=== PATIENT | female | born 2000 | race Caucasian/White ===

== ENCOUNTER 2023-03-02 12:49 | Emergency (ER) | payer OTHER ==
[2023-03-02 13:12] VITALS: BP 119/74; O2SAT 98
[2023-03-02 13:20] LABS: RAPID STREP SCREEN POSITIVE (Negative)
--- NOTE | 2023-03-02 13:53 | ED Physician Documentation ---
History of Present Illness - Stated complaint Stated Complaint: THROAT PX/ACHES - Chief complaint Chief Complaint: Heent - History obtained from History obtained from: Patient - History of Present Illness Timing: How many weeks ago (1) Pain level max: 6 Pain level now: 6 - Additonal information Additional information: Patient is a 22-year-old female who presents to the emergency department with a sore throat x1 week. She has also had rhinorrhea, cough and congestion. Has not taken anything for this at home. No vomiting. No diarrhea. Denies any possibility of . She is on control. No urinary symptoms. No hematemesis. No hemoptysis. Worse with eating and drinking, nothing makes it b tomas. Review of Systems Constitutional: reports: Chills. denies: Fever Nose: reports: Rhinorrhea / runny nose, Congestion Throat: reports: Sore throat Respiratory: reports: Cough GI: denies: Vomiting, Diarrhea : denies: Now [facility] PAST MEDICAL HISTORY - Past Medical History Past Medical History: No - Past Surgical History Past Surgical History: No - Present Medications Home Medications: Ambulatory Orders Medication Instructions Recorded Confirmed Cetirizine HCl/Pseudoephedrine 1 tab PO BID PRN #20 tab 03/02/23 [Zyrtec-D ER 5 mg-120 mg Tablet] Penicillin V Potassium 500 mg PO Q6HR #40 tablet 03/02/23 - Allergies Allergies/Adverse Reactions: Allergies Allergy/AdvReac Type Severity Reaction Status Date / Time No Known Drug Allergies Allergy Verified 03/02/23 13:06 - Living Situation Living Arrangement: reports: At home - Social History Does the pt have substance abuse?: No PD ED PE NORMAL - Vitals Vital signs reviewed: Yes - General General: Alert and oriented X 3, No acute distress - HEENT HEENT: PERRL, Ears normal, Moist mucous membranes, Other (Posterior pharyngeal erythema with tonsillar exudates. Uvula midline. Normal phonation. No trismus.) - Neck Neck: Supple, no meningeal sign - Cardiac Cardiac: RRR, Strong equal pulses - Respiratory Respiratory: No respiratory distress, Clear bilaterally - Abdomen Abdomen: Soft, Non tender, Non distended - Derm Derm: Warm and dry, No rash - Neuro Neuro: Alert and oriented X 3 - Psych Psych: Normal mood, Normal affect Results - Vitals Vitals: Vital Signs - 24 hr 03/02/23 12:57 Temperature 37.5 C Heart Rate 94 Respiratory 17 Rate Blood Pressure 119/74 O2 Saturation 98 Oxygen O2 Source Room air - Labs Labs: Laboratory Tests 03/02/23 13:04 Group A Strep Rapid POSITIVE H PD Medical Decision Making - ED course Complexity details: reviewed results, considered differential, d/w patient ED course: Patient is well-appearing, nontoxic. Afebrile. Lungs are clear to auscultation bilaterally. She has positive for group A strep. Will place on antibiotics for this. We will also place on decongestants for home. Tolerating p.o. without difficulty here. Patient counseled regarding signs and symptoms for which I believe and urgent re-evaluation would be necessary. Patient with good understanding of and agreement to plan and is comfortable going home at this time This document was made in part using voice recognition software. While efforts are made to proofread this document, sound alike and grammatical errors may occur. No evidence of sepsis, peritonsillar abscess or retropharyngeal abscess. Departure - Departure Disposition: 01 Home, Self Care Clinical Impression: Strep pharyngitis Condition: Good Instructions: ED Strep Pharyngitis Conf Follow-Up: your,doctor as needed [Other] Prescriptions: Penicillin V Potassium 500 mg PO Q6HR #40 tablet Cetirizine HCl/Pseudoephedrine [Zyrtec-D ER 5 mg-120 mg Tablet] 1 tab PO BID PRN #20 tab PRN Reason: nasal congestion Comments: Your prescriptions were sent to [facility] in [place]. Please take all antibiotics until gone. Please return if you worsen. You are positive for strep pharyngitis today. Please make sure you are drinking plenty of fluids. You can use Tylenol and Motrin as needed for pain. Forms: PCP List, Activity restrictions
[2023-03-02 14:14] LABS: B. PARAPERTUSSIS- RESP PCR PAN NOT DETECTED; B. PERTUSSIS- RESP PCR PANEL NOT DETECTED; C. PNEUMONIAE- RESP PCR PANEL NOT DETECTED; CORONAVIRUS 229E-RESP PCR NOT DETECTED; CORONAVIRUS HKU1-RESP PCR NOT DETECTED; CORONAVIRUS NL63-RESP PCR NOT DETECTED; CORONAVIRUS OC43-RESP PCR NOT DETECTED; HUMAN METAPNEUMOVIRUS NOT DETECTED; INFLUENZA A- RESP PCR PANEL NOT DETECTED; INFLUENZA B - RESP PCR PANEL NOT DETECTED; M. PNEUMONIAE- RESP PCR PANEL NOT DETECTED; PARAINFLUENZA VIRUS 1 NOT DETECTED; PARAINFLUENZA VIRUS 2 NOT DETECTED; PARAINFLUENZA VIRUS 3 NOT DETECTED; PARAINFLUENZA VIRUS 4 NOT DETECTED; RHINOVIRUS/ENTEROVIRUS NOT DETECTED; RSV- RESP PCR PANEL NOT DETECTED
[2023-03-02 14:16] LABS: SARS-CoV-2 -RESP PCR PANEL DETECTED
== END 2023-03-02 14:27 | disposition home or self-care (01) ==
LOC: ED 12:49
DX: J02.0 Streptococcal pharyngitis (principal); U07.1 COVID-19
CPT/HCPCS: 87430; 87633; 99283